=== PATIENT | male | born 1960 | race Caucasian/White ===

== ENCOUNTER → 2017-04-11 | Outpatient (CLI) | payer OTHER ==
[~2017-04-11] MED LIST: ASPIRIN PO; BENADRYL PO; DESYREL50 MG PO; FLUOXETINE HCL40 M1 PO; LATANOPROST2.5 ML OU; LORTAB 7.51 TAB PO; METOPROLOL TART25 MG PO; OLANZAPINE5 MG PO; PATIENT'S PHARMACY; PROZAC40 M1 PO; SERZONE PO; WELLBUTRIN SR200 MG PO; ZYPREXA PO
--- NOTE | ~2017-04-11 | US115 ---
[facility] A Service of [facility] RADIOLOGY TEXT RESULTS PATIENT: MIYA HOOD LOCATION: [facility] : 64 UNIT #: [id number] AGE: [address]: Jessica Mccall MD SEX: M ORDER DR: [id number] [place], [place] [address] [id number] O MR#: [id number] Acc #: [id number] NAME: MIYA HOOD : 1960 SEX: M STUDY DATE/TIME: 04/11/2017 15:00 UNIT: [facility] ROOM: STUDY DESCRIPTION: US Scrotum and Contents Attending Physician: Jessica Mccall M.D. Ordering Physician: Jessica Mccall M.D. Primary Care Physician: Jessica Mccall M.D. MEDICAL IMAGING REPORT This report is preliminary unless electronic signature is present EXAM Testicular ultrasound bilateral 04/11/2017 INDICATIONS Enlarged right testicle for the past week. Right-sided testicular pain for a week. TECHNIQUE Hector-scale, color Doppler, and spectral analysis of the testicles was performed bilaterally. COMPARISON We have no comparisons. FINDINGS The right testicle measures 3.1 x 2.6 x 4.1 cm, and the left measures 3.0 x 1.9 x 4.9 cm. Both testicles demonstrate heterogeneous echotexture bilaterally, slightly more prominent on the right than the left. Both testicles demonstrate good flow at the time of the study. There is a right-sided hydrocele and right- sided varicocele. Right epididymal head not clearly identified. The left epididymal head is prominent, but otherwise within normal limits without distinct evidence of epididymitis. No distinct evidence of orchitis. Although the area of heterogeneous echotexture in the right testicle is more prominent than that on the left, this is favored to represent a benign finding. It would be impossible to fully exclude an infiltrating subtle mass or other infiltrative process, although that is felt to be less likely. Precautionary followup ultrasound in 6 months is recommended for reassessment of stability. IMPRESSION 1. Both testicles demonstrate good flow at the time of the study. No STS. [facility] A Service of [facility] RADIOLOGY TEXT RESULTS PATIENT: MIYA HOOD LOCATION: [facility] #: [id number] : 64 UNIT #: [id number] AGE: [address]: Jessica Mccall MD SEX: M ORDER DR: evidence of orchitis or epididymitis. 2. Heterogeneous echotexture in the right testicle more prominent than that present on the left. This is favored to represent a benign finding. Subtle infiltrating mass or other infiltrating process felt to be less likely, but a precautionary followup ultrasound in 6 months is recommended for reassessment of stability. 3. The technologist has labeled an epididymal cyst on the right measuring up to 3.2 cm. This is favored actually to represent a right-sided hydrocele. 4. Incidental right-sided varicocele. STAT * RESULT Dictated by... Oc Maldonado M.D. THIS IS AN ELECTRONICALLY VERIFIED REPORT Oc Maldonado M.D. at 04/11/2017 4:58 PM [place] TD: 04/11/2017 16:20 JOB #: [id number] MEDICAL IMAGING REPORT Page 1 of 1 COPY
== END | disposition home or self-care (01) ==
LOC: CGUS 14:14 → SGUS 14:30
DX: N50.819 Testicular pain, unspecified (principal); N50.3 Cyst of epididymis
CPT/HCPCS: 76870; 93976

== ENCOUNTER 2017-04-20 11:08 | Emergency (ER) | payer OTHER ==
[~2017-04-20 11:08] MED LIST changes: -LATANOPROST2.5 ML OU; -PATIENT'S PHARMACY; -PROZAC40 M1 PO
[2017-04-20 12:17] LABS: URINE SOURCE CLEAN CATCH
[2017-04-20 12:25] LABS: URINE APPEARANCE CLEAR; URINE BLOOD NEG (NEG); URINE COLOR DK YELLOW; URINE GLUCOSE NEG (NEG); URINE KETONE TRACE (NEG); URINE LEUKOCYTE ESTERASE TRACE (NEG); URINE NITRATE NEG (NEG); URINE PROTEIN 2+ (NEG); URINE SPECIFIC GRAVITY 1.021 (1.003-1.035)
[2017-04-20 12:28] LABS: URINE BACTERIA AUWI NEG (NEGATIVE); URINE SQUAMOUS EPITHELIAL CELL OCC /[HPF]; UWBCS1 AUWI 0-2 (0-5)
[2017-04-20 12:30] LABS: CULTURE INDICATED? NO
[2017-04-20 12:31] LABS: URINE BILIRUBIN NEG (NEG)
[2017-04-20] MEDS ORDERED: DESYREL50 MG PO (12:43)
[2017-04-20] MEDS ORDERED: PATIENT'S PHARMACY (12:43)
[2017-04-20] MEDS ORDERED: PROZAC40 M1 PO (12:43)
[2017-04-20] MEDS ORDERED: OLANZAPINE5 MG PO (12:43)
[2017-04-20] MEDS ORDERED: LATANOPROST2.5 ML OU (12:44)
[2017-04-20] MEDS ORDERED: WELLBUTRIN SR200 MG PO (12:44)
[2017-04-20] MEDS ORDERED: METOPROLOL TART25 MG PO (12:44)
== END 2017-04-20 13:25 | disposition home or self-care (01) ==
LOC: CED 11:08
PROVIDERS: Emergency Medicine
DX: N50.89 Other specified disorders of the male genital organs (principal); B37.9 Candidiasis, unspecified; I11.9 Hypertensive heart disease without heart failure; I51.9 Heart disease, unspecified; Z85.46 Personal history of malignant neoplasm of prostate; Z98.890 Other specified postprocedural states
CPT/HCPCS: 81003; 99282